=== PATIENT | female | born 1965 | race Caucasian/White ===

== ENCOUNTER 2024-11-28 19:31 | Emergency (ER) | payer BC ==
[~2024-11-28] VITALS: Ht 162.6 cm; Wt 64.4 kg
[2024-11-28] MEDS ORDERED: CLINDAMYCIN HCL 150 MG CAPSULE ONE (22:01)
[2024-11-28] MEDS ORDERED: DOXY100C5 PO (22:08)
[2024-11-28] MEDS: CLINDAMYCIN HCL 150 MG CAPSULE PO ONE (22:10)
[2024-11-28 22:24] VITALS: BP 118/78; TEMP 79.9; O2SAT 97
== END 2024-11-28 22:24 | disposition home or self-care (01) ==
LOC: ER 19:32
DX: S61.432A Puncture wound without foreign body of left hand, initial encounter (principal); Z88.0 Allergy status to penicillin; W54.0XXA Bitten by dog, initial encounter; Y93.89 Activity, other specified; Y92.89 Other specified places as the place of occurrence of the external cause; Y99.8 Other external cause status
CPT/HCPCS: A4606; A4663